=== PATIENT | female | born 1945 | race Asian ===

== ENCOUNTER 2017-12-16 08:14 | Day surgery (SDC) | payer OTHER ==
[2017-12-16] MEDS ORDERED: PROPOFOL 20 ML ×2 (09:28→10:29)
[2017-12-16] MEDS ORDERED: FENTAnyl 50 MCG/ML VIAL (09:28)
== END 2017-12-16 11:27 | disposition home or self-care (01) ==
LOC: GIL 08:14
DX: R19.4 Change in bowel habit (principal); D12.3 Benign neoplasm of transverse colon; K64.8 Other hemorrhoids; E03.9 Hypothyroidism, unspecified; I10 Essential (primary) hypertension
CPT/HCPCS: 45380; 88305